=== PATIENT | female | born 1995 | race Caucasian/White ===

== ENCOUNTER 2017-04-17 16:07 | Inpatient (IN) | payer SELFPAY ==
[~2017-04-17] VITALS: Ht 149.9 cm; Wt 54.0 kg
[2017-04-17 16:21] VITALS: Ht 149.9 cm; Wt 54.0 kg
--- NOTE | 2017-04-17 17:18 | RADRPT ---
PROCEDURE: OB Ultrasound. CLINICAL INDICATION: Positive test. Diabetes. TECHNIQUE: Ultrasound of the pelvis was performed with transabdominal sonography in the axial and sagittal planes. COMPARISON: No prior study is available for comparison. FINDINGS: There is a single intrauterine gestational sac. pole and yolk sac are present. There is heart motion. heart rate is 121 beats per minute. Cisne-rump length is 0.43 cm. Mean sac diameter is 1.63 cm. Menstrual age by ultrasound dates is 6 weeks 2 days. This indicates an expected date of delivery of 12/09/2017. The right ovary appears normal measuring 3.8 x 2.6 x 2.6 cm. The left ovary appears normal measuring 3.6 x 2.8 x 2.5 cm. Color Doppler and pulsed Doppler sonography demonstrate normal flow to the ovaries. There is no other pelvic mass or free fluid. IMPRESSION: 1. Single live intrauterine gestation of 6 weeks 2 days menstrual age by ultrasound dates. 2. Expected date of delivery is 12/09/2017. RPTAT: QQ .Jacob Camacho MD, Date Time Electronically viewed and signed by .Jacob Camacho MD, on 04/17/2017 17:18 .R/
[2017-04-17] MEDS ORDERED: GLUCAGON 1 MG INJ IM PRN ×2 (17:30)
[2017-04-17] MEDS ORDERED: DEXTROSE 50% 50 ML SYRINGE IV PRN ×4 (17:30)
[2017-04-17] MEDS ORDERED: GLUCOSE GEL 15 GRAM TUBE BUCCAL PRN ×2 (17:30)
[2017-04-17] MEDS ORDERED: GLUCOSE GEL 15 GRAM TUBE PO PRN ×4 (17:30)
[2017-04-17 18:46] LABS: ADD SCAN DIFF NO
[2017-04-17 18:47] LABS: BASOPHIL # 0.1 10^3/ul (0.0-0.1); BASOPHILS % 0.8 % (0.0-2.0); EOSINOPHILS # 0.1 10^3/ul (0.0-0.5); EOSINOPHILS % 0.8 % (0.0-7.0); HEMATOCRIT 36.4 % (37.0-47.0); HEMOGLOBIN 12.8 g/dl (12.0-16.0); LYMPHOCYTES # 2.2 10^3/ul (0.8-2.9); LYMPHOCYTES % 29.7 % (18.0-55.0); MEAN CORPUSCULAR HEMOGLOBIN 30.4 pg (29.0-33.0); MEAN CORPUSCULAR HGB CONC 35.2 g/dl (32.0-37.0); MEAN CORPUSCULAR VOLUME 86.5 fl (72.0-104.0); MEAN PLATELET VOLUME 12.4 fl (7.4-10.4); MONOCYTE # 0.5 10^3/ul (0.3-0.9); MONOCYTES % 6.5 % (0.0-13.0); NEUTROPHIL # 4.5 10^3/ul (1.6-7.5); NEUTROPHILS % 61.8 % (30.0-74.0); PLATELET COUNT 221 10^3/UL (140-415); RED BLOOD COUNT 4.21 10^6/ul (4.20-5.40); RED CELL DISTRIBUTION WIDTH 12.7 % (11.5-14.5); WHITE BLOOD COUNT 7.4 10^3/ul (4.8-10.8)
[2017-04-17 19:04] LABS: ALBUMIN 4.9 g/dl (3.3-4.9); ALBUMIN/GLOBULIN RATIO 1.68; BILIRUBIN,INDIRECT 0.4 mg/dl (0-1.1); BILIRUBIN,TOTAL 0.4 mg/dl (0.2-1.3); CALCIUM 9.4 mg/dl (8.4-10.2); CREATININE 0.57 mg/dl (0.44-1.00); POTASSIUM 4.1 mmol/L (3.5-5.1); TOTAL PROTEIN 7.8 g/dl (6.1-8.1)
[2017-04-17] MEDS: INSULIN ASPART [NOVOLOG] 3 ML PEN SC SCH (20:05)
[2017-04-17] MEDS: ACCU-CHEK XX SCH (20:18)
--- NOTE | 2017-04-17 21:47 | HP ---
Date/Time of Note Date/Time of Note DATE: 04/17/17 TIME: 21:43 OB - History Hx of Present Chief Complaint: Elevated blood glucose Last Menstrual Period: Feb 17, 2017 : 1 Para: 0 Spontaneous : 0 Therapeutic : 0 Care: Good Care Ultrasounds: Other (normal first ntrimester) Obstetrical Complications: Other (Elevated 1 hour glucose challenge test 234) Medical Complications: None Past Family/Social History * Past Medical, Surgical, Family and Obstetric Histories reviewed from chart. OB Admission Exam Physical Exam HEENT: WNL Heart: Rhythm Normal Lungs: Clear, Equal Abdomen: WNL Extremities: Normal Reflexes: Normal Last 72 hourBlood Glucose Bedside Glucose - 72 Hours Test 04/17/17 16:27 04/17/17 20:18 Bedside Glucose 85mg/dL (70-220) 89mg/dL (70-220) Last 72 hours Lab Results CBC & BMP 04/17/17 18:35 Liver Function Test 04/17/17 18:35 Alanine Aminotransferase (ALT/SGPT) 21 Albumin 4.9 Alkaline Phosphatase 66 Aspartate Amino Transf (AST/SGOT) 19 Direct Bilirubin 0.00 Total Protein 7.8 Hemoglobin A1C Test 04/17/17 18:35 Hemoglobin A1c 5.1 OB Assessment/Plan Reason for admission: other (abnormal 1 hour glucose test) Plan: Other (admit see orders) ANNETTE LAWSON MD Apr 17, 2017 21:47
[2017-04-17 22:56] LABS: ADD UMIC YES; UR ASCORBIC ACID 40 mg/dL (NEGATIVE); UR BACTERIA FEW /HPF (NONE SEEN); UR BILIRUBIN (Dip) NEGATIVE (NEGATIVE); UR BLOOD (Dip) 1+ mg/dL (NEGATIVE); UR CLARITY SLIGHTLY CLOUDY (CLEAR); UR COLOR YELLOW (YELLOW); UR GLUCOSE (Dip) NEGATIVE (NEGATIVE); UR KETONES (Dip) 2+ mg/dL (NEGATIVE); UR LEUKOCYTE ESTERASE (Dip) 1+ Leu/ul (NEGATIVE); UR MUCUS MANY /HPF (NONE SEEN); UR NITRITE (Dip) NEGATIVE (NEGATIVE); UR RBC 5 /HPF (0-5); UR SPECIFIC GRAVITY (Dip) 1.021 (1.003-1.030); UR SQUAMOUS EPITHELIAL CELL FEW /HPF (FEW); UR TOTAL PROTEIN (Dip) NEGATIVE (NEGATIVE); UR UROBILINOGEN (Dip) NEGATIVE (NEGATIVE)
[2017-04-18] MEDS: ACCU-CHEK XX SCH ×2 (07:30→11:15)
[2017-04-18] MEDS ORDERED: MULTIVIT/MIN/FOLATE/IRON/PREN TAB PO SCH (09:00)
--- NOTE | 2017-04-18 10:36 | RADRPT ---
Vent Rate: 60 bpm RR Interval: 0 msec CO Interval: 118 msec QRS Duration: 70 msec QT Interval: 396 msec QTC Interval: 396 msec P-R-T Parker: 27 - 57 - 41 degrees Normal sinus rhythm Normal ECG Electronically Signed By: Adalid Zazueta [id number]
[2017-04-18] MEDS: INSULIN ASPART [NOVOLOG] 3 ML PEN SC SCH (11:15)
--- NOTE | 2017-04-18 13:17 | QN ---
Documentation Comment No complaint Afebrile VSS Await Perinatology consult ANNETTE LAWSON MD Apr 18, 2017 13:16
--- NOTE | 2017-04-18 18:12 | DS ---
Date/Time of Note Date/Time of Note DATE: 04/18/17 TIME: 18:10 Obstetrical Discharge Record Final Diagnosis Final Diagnosis: not delivered Other Final Diagnosis iup 6 weeks elevated blood sugar-resolved pt with elevated i hour but upon admission with wnl blood sugars. probable inaccurate one hour. to fu with dr akers next weeks Condition on Discharge Physical Assessment Voiding: Yes Bowel Movement: Yes Breast: Soft, non-tender Calf Tenderness: No Patient Condition: Stable LUIS EDUARDO SAMS MD Apr 18, 2017 18:12
[2017-04-18 20:13] LABS: SCRET 0.57 mg/dl (0.44-1.00)
== END 2017-04-18 20:03 | disposition home or self-care (01) | DRG 781 ==
LOC: OBG 16:07
PROVIDERS: ADMIT Obstetrics & Gynecology; ATTEND Obstetrics & Gynecology
DX: O99.810 Abnormal glucose complicating pregnancy (principal); Z3A.01 Less than 8 weeks gestation of pregnancy
CPT/HCPCS: 76801; 80053; 81001; 82575; 82962; 83036; 84156; 85025; 93005; J1815

== ENCOUNTER 2017-12-05 15:27 | Inpatient (IN) | END 2017-12-08 12:48 | disposition home or self-care (01) | DRG 775 ==